=== PATIENT | female | born 1980 | race Caucasian/White ===

== ENCOUNTER 2018-10-17 17:28 | Emergency (ER) | payer SELFPAY ==
[2018-10-17 17:47] VITALS: BP 146/94
[2018-10-17] MEDS ORDERED: OXYCODONE-ACETAMINOPHEN 5-325 MG TABLET PO ONE (18:01)
[2018-10-17] MEDS ORDERED: ONDANSETRON 4 MG TAB.RAPDIS PO ONE (18:01)
--- NOTE | 2018-10-17 18:03 | ER Document Report ---
ED Medical Screen (RME) - General Chief Complaint: Fall Injury Stated Complaint: FALL/ANKLE,KNEE, ARM, LEG PAIN Time Seen by Provider: 10/17/18 17:56 Primary Care Provider: ANIKET SANCHEZ MD [Primary Care Provider] - Follow up as needed Mode of Arrival: Ambulatory Information source: Patient Notes: Patient presents emergency department with left ankle pain and abrasion to the left elbow left knee. She reports she fell going outside last night. She reports has been bleeding quite a bit. Last tetanus 2009. I have greeted and performed a rapid initial assessment of this patient. A comprehensive ED assessment and evaluation of the patient, analysis of test results and completion of the medical decision making process will be conducted by additional ED providers. TRAVEL OUTSIDE OF THE [place] IN LAST 30 DAYS: No - Related Data Allergies/Adverse Reactions: adhesive Allergy (Verified 10/17/18 17:34) latex Allergy (Verified 10/17/18 17:34) Past Medical History - Past Medical History Cardiac Medical History: Reports: Hx Hypertension Psychiatric Medical History: Reports: Hx Anxiety Past Surgical History: Reports: Hx Abdominal Surgery - Bowel obstruction after gastric bypass, Hx Gastric Bypass Surgery - Immunizations Hx Diphtheria, Pertussis, Tetanus Vaccination: Yes Physical Exam - Vital signs Vitals: Temp Pulse Resp BP Pulse Ox 97.7 F 120 H 18 146/94 H 96 10/17/18 17:43 10/17/18 17:43 10/17/18 17:43 10/17/18 17:43 10/17/18 17:43 Course - Vital Signs Vital signs: Temp Pulse Resp BP Pulse Ox 97.7 F 120 H 18 146/94 H 96 10/17/18 17:43 10/17/18 17:43 10/17/18 17:43 10/17/18 17:43 10/17/18 17:43 Doctor's Discharge - Discharge Referrals: ANIKET SANCHEZ MD [Primary Care Provider] - Follow up as needed
--- NOTE | 2018-10-17 18:24 | RADIOLOGY REPORT (SQ) ---
EXAM DESCRIPTION: ANKLE LEFT COMPLETE COMPLETED DATE/TIME: 10/17/2018 6:12 pm REASON FOR STUDY: ankle pain, fall COMPARISON: None. NUMBER OF VIEWS: Three views. TECHNIQUE: AP, lateral, and oblique radiographic images acquired of the left ankle. LIMITATIONS: None. FINDINGS: MINERALIZATION: Normal. BONES: No acute fracture or dislocation. No worrisome bone lesions. Calcaneal enthesopathy is prese nt. JOINTS: No effusions. SOFT TISSUES: No soft tissue swelling. No foreign body. OTHER: No other significant finding. IMPRESSION: NO RADIOGRAPHIC EVIDENCE OF ACUTE INJURY. TECHNICAL DOCUMENTATION: JOB ID: [id number] [employer]- All Rights Reserved Reading location - IP/workstation name: [email or web address]
[2018-10-17] MEDS ORDERED: KETOROLAC TROMETHAMINE 60 MG/2 ML SDV IM ONE (22:55)
[2018-10-17] MEDS ORDERED: DIPH/PERTUSS(ACELL)/TETANUS VAC/PF 0.5 ML SYR (>=10YO) IM ONE (22:55)
--- NOTE | 2018-10-17 22:58 | ER Document Report ---
ED General - General Chief Complaint: Fall Injury Stated Complaint: FALL/ANKLE,KNEE, ARM, LEG PAIN Time Seen by Provider: 10/17/18 17:56 Primary Care Provider: ANIKET SANCHEZ MD [Primary Care Provider] - Follow up as needed Mode of Arrival: Ambulatory Notes: Patient is a 38-year-old female without chronic medical problems who presents 24 hours after a fall. Patient states that she was attempting to move things around the house, tripped over a bed frame and landed on concrete. She states that she sustained abrasions over the left elbow and forearm, bilateral knees, and sustained a laceration over the left lateral malleolus. She did not hit her head or neck. She states she cleaned these areas at home and did not seek medical attention at that time. She states however today a laceration over the left lateral malleolus continued to bleed prompting her to come to the emergency department for further assessment. Last tetanus was approximately 8 years ago. She has not seen her primary care doctor regarding today's concerns. Pain to the affected areas as noted to be a mild, aching, throbbing pain. She has not trying to improve the pain. Touching the areas or moving worsens the pain. TRAVEL OUTSIDE OF THE [place] IN LAST 30 DAYS: No - Related Data Allergies/Adverse Reactions: adhesive Allergy (Verified 10/17/18 17:34) latex Allergy (Verified 10/17/18 17:34) Past Medical History - General Information source: Patient - Social History Smoking Status: Never Smoker Frequency of alcohol use: None Drug Abuse: None Lives with: Spouse/Significant other Family History: Arthritis, CAD, COPD, DM, Hyperlipidemia, Hypertension, Malignancy Patient has suicidal ideation: No Patient has homicidal ideation: No - Past Medical History Cardiac Medical History: Reports: Hx Hypertension Renal/ Medical History: Denies: Hx Peritoneal Dialysis Psychiatric Medical History: Reports: Hx Anxiety Past Surgical History: Reports: Hx Abdominal Surgery - Bowel obstruction after gastric bypass, Hx Gastric Bypass Surgery - Immunizations Hx Diphtheria, Pertussis, Tetanus Vaccination: Yes Review of Systems - Review of Systems Notes: Constitutional: Negative for fever. Eyes: Negative for visual changes. ENT: Negative for facial injury Cardiovascular: Negative for chest injury. Respiratory: Negative for shortness of breath. Gastrointestinal: Negative for abdominal injury. Genitourinary: Negative for genital injury Musculoskeletal: Positive for left ankle injury Skin: Positive for laceration/abrasions. Neurological: Negative for head injury. Physical Exam - Vital signs Vitals: Temp Pulse Resp BP Pulse Ox 97.7 F 120 H 18 146/94 H 96 10/17/18 17:43 10/17/18 17:43 10/17/18 17:43 10/17/18 17:43 10/17/18 17:43 Interpretation: Tachycardic Notes: PHYSICAL EXAMINATION: GENERAL: Well-appearing, no acute distress. HEAD: Atraumatic, normocephalic. EYES: Pupils equal round and reactive to light, extraocular movements intact, sclera anicteric, conjunctiva are normal. ENT: nares patent, no oral pharyngeal trauma. No hemotympanum, no Shah's sign, no raccoon eyes. NECK: No midline cervical spine tenderness. Patient able to move their head to 45 bilaterally without any discomfort. LUNGS: Breath sounds clear to auscultation bilaterally and equal. No wheezes rales or rhonchi. HEART: Regular rate and rhythm without murmurs. CHEST WALL: No ecchymosis over the chest wall. ABDOMEN: Soft, nontender, normoactive bowel sounds. No guarding, no rebound. No abdominal bruising EXTREMITIES: Normal range of motion, no pitting or edema. No long bone deformities. BACK: No midline spinal tenderness, step-offs, or deformities. NEUROLOGICAL: Face symmetric. Tongue protrudes midline. Extraocular motions intact. Pupils are 2 mm and equally reactive. Normal speech, normal gait. 5 out of 5 strength in both the distal and proximal upper and lower extremities bilaterally. Sensation is grossly intact throughout. Finger to nose testing normal. Pronator drift normal. PSYCH: Normal mood, normal affect. SKIN: Warm, Dry, normal turgor, areas of abrasions of the bilateral knees, left elbow, 2 cm laceration to the left lateral malleolus Course - Re-evaluation Re-evalutation: 10/17/18 22:56 Presentation of a well patient in no acute distress, vitals within normal limits after a mechanical fall last evening. No focal neurologic deficits on exam, no evidence of basilar skull fracture on exam without evidence of hemotympanum, raccoon eyes, or periauricular hematoma. No papilledema. Patient is not on anticoagulation. GCS is 15. No loss of consciousness. No episodes of vomiting. Patient is therefore negative via [place] head CT criteria and CT imaging will not be obtained at this time. Patient also evaluated by nexus criteria and found to be negative. Patient is also negative by [place] C-spine criteria. No clinical evidence to suggest increased risk of cervical spine fracture. No indication for further imaging of the cervical spine. Patient has no focal deformities or limited range of motion in any joint space to indicate need for extremity imaging. Chest and abdominal exam are benign without any focal tenderness, shortness of breath, or bruising over the chest or abdominal wall. Patient has no flank tenderness. Patient has multiple abrasions over the left elbow and dorsal forearm, and abrasion to the right great toe, abrasions over the bilateral knees, and a laceration over the left lateral malleolus. Laceration is greater than 24 hours in age, not safe to close primarily and will heal via secondary intention. Tetanus has been updated. At this time will discharge with return precautions and follow-up recommendations. Verbal discharge instructions given a the bedside and opportunity for questions given. Medication warnings reviewed. Patient is in agreement with this plan and has verbalized understanding of return precautions and the need for primary care follow-up in the next 24-72 hours. - Vital Signs Vital signs: Temp Pulse Resp BP Pulse Ox 97.7 F 120 H 18 146/94 H 96 10/17/18 17:43 10/17/18 17:43 10/17/18 17:43 10/17/18 17:43 10/17/18 17:43 - Diagnostic Test Radiology reviewed: Image reviewed, Reports reviewed Radiology results interpreted by me: 10/18/18 03:25 Left ankle x-ray: No acute fracture or dislocation Discharge - Discharge Clinical Impression: Multiple abrasions Fall Qualifiers: Encounter type: initial encounter Qualified Code(s): W19.XXXA - Unspecified fall, initial encounter Left ankle injury Qualifiers: Encounter type: initial encounter Qualified Code(s): S99.912A - Unspecified injury of left ankle, initial encounter Condition: Good Disposition: HOME, SELF-CARE Additional Instructions: You have been seen in the Emergency Department (ED) today following a fall. Your workup today did not reveal any injuries that require you to stay in the hospital. You can expect, though, to be stiff and sore for the next several days. You can take ibuprofen 600 mg every 6 hours as needed for pain. You can apply a hot pack or electric heating pad to the sore areas. You can also use topical "Aspercreme with lidocaine" to sore areas as needed. Keep the areas of skin injury clean and dry. Clean with soap and water twice daily. Apply topical bacitracin and keep covered. Please follow up with your primary care doctor as soon as possible regarding today's ED visit and your recent accident. Call your doctor or return to the ED if you develop a sudden or severe headache, confusion, slurred speech, facial droop, weakness or numbness in any arm or leg, extreme fatigue, vomiting more than two times, severe abdominal pain, or other symptoms that concern you. Referrals: ANIKET SANCHEZ MD [Primary Care Provider] - Follow up as needed
== END 2018-10-17 23:36 | disposition home or self-care (01) ==
LOC: ER 17:28
DX: S91.012A Laceration without foreign body, left ankle, initial encounter (principal); S99.912A Unspecified injury of left ankle, initial encounter; S50.312A Abrasion of left elbow, initial encounter; S50.812A Abrasion of left forearm, initial encounter; W18.09XA Striking against other object with subsequent fall, initial encounter; I10 Essential (primary) hypertension
CPT/HCPCS: 99283; 96372; 90471; 73610; 90715; J1885; S0119

== ENCOUNTER 2019-01-11 23:00 | Emergency (ER) | payer SELFPAY ==
--- NOTE | 2019-01-11 23:17 | ER Document Report ---
Addendum entered and electronically signed by KASHIF MURRAY MD 01/12/19 14:44: Discharge - Discharge Clinical Impression: Suicide attempt Overdose Qualifiers: Encounter type: initial encounter Injury intent: intentional self-harm Qualified Code(s): T50.902A - Poisoning by unspecified drugs, medicaments and biological substances, intentional self-harm, initial encounter Alcohol intoxication Qualifiers: Complication of substance-induced condition: uncomplicated Qualified Code(s): F10.920 - Alcohol use, unspecified with intoxication, uncomplicated Leukocytosis Qualifiers: Leukocytosis type: unspecified Qualified Code(s): D72.829 - Elevated white blood cell count, unspecified Condition: Stable Disposition: HOME, SELF-CARE Additional Instructions: You have been evaluated both medical and behavioral health teams and have been deemed appropriate for discharge. You are recommended to follow-up with your outpatient mental health provider that you have set up in [place], [place]. You are recommended to decrease your Remeron to 15 mg daily for 7 days then discontinue. You have been provided prescriptions for Zyprexa 5 mg twice daily and Prozac 20 mg daily; please take as directed. You are highly encouraged to follow through with trauma focused therapy such as cognitive behavioral therapy (CBT) to address how to interpret your environment, your triggers, and build positive coping skills. Please stop using any illegal substances and alcohol. If you are having difficulties with discontinuing alcohol, you have been provided detox resource information or you can return to the emergency department if you start having concerns for withdrawal symptoms. Your family member has agreed to be part of your plan of care (i.e. no access to medications and weapons and to follow through with mental health recommendations) and you both have identified friends as additional supports to continue assist in observation during this high stressful time. If it any time, you do not follow these recommendations your support network is recommended to contact the local supervising appraiser for possible IVC petition for concern that you are a danger to yourself. DEPRESSION: Your evaluation reveals that you have mental depression. While symptoms may be vague, they often include disturbance of sleep, fatigue, loss of appetite, and general loss of interest in life. While depression may be a side effect of drugs, or a reaction to a major change in your life, many cases have no known cause. If depression is acute, and related to a major loss in your life, you can expect it to clear completely with time. If you have been depressed a long time, are prone to repeated bouts of depression or low mood, or have been thinking of suicide, get help. Depression can be treated with anti-depressant medication and counselling. Long-term depression will often take a few weeks to clear, even with appropriate medication. Follow-up care is important. SUICIDAL IDEATION: Suicidal ideation is a common medical term for thoughts about suicide, which may be as detailed as a formulated plan, without the suicidal act itself. Although most people who undergo suicidal ideation do not commit suicide, some go on to make suicide attempts. The range of suicidal ideation varies greatly from fleeting to detailed planning, role playing, and unsuccessful attempts. While thoughts about suicide are common, most people do not carry out serious actions to commit suicide. Based upon your evaluation and discussion with you, we do not believe you are currently at risk to act upon your thoughts of suicide. You have agreed to return to the Emergency Department, at any time, if you feel inclined to act upon your suicidal thoughts. FOLLOW-UP CARE: If you have been referred to a physician for follow-up care, call the physicians office for an appointment as you were instructed or within the next two days. If you experience worsening or a significant change in your symptoms, notify the physician immediately or return to the Emergency Department at any time for re-evaluation. Prescriptions: Fluoxetine HCl [Prozac 20 mg Capsule] 20 mg PO DAILY #7 capsule Olanzapine [Zyprexa 5 mg Tablet] 5 mg PO BID #15 tablet Referrals: [facility] [Outside] - Follow up as needed ANIKET SANCHEZ MD [NO LOCAL MD] - Follow up as needed Addendum entered and electronically signed by JACKY ARREGUIN LCSWA 01/12/19 14:36: Discharge - Discharge Clinical Impression: Suicide attempt Overdose Qualifiers: Encounter type: initial encounter Injury intent: intentional self-harm Qualified Code(s): T50.902A - Poisoning by unspecified drugs, medicaments and biological substances, intentional self-harm, initial encounter Alcohol intoxication Qualifiers: Complication of substance-induced condition: uncomplicated Qualified Code(s): F10.920 - Alcohol use, unspecified with intoxication, uncomplicated Leukocytosis Qualifiers: Leukocytosis type: unspecified Qualified Code(s): D72.829 - Elevated white blood cell count, unspecified Condition: Stable Disposition: HOME, SELF-CARE Additional Instructions: You have been evaluated both medical and behavioral health teams and have been deemed appropriate for discharge. You are recommended to follow-up with your outpatient mental health provider that you have set up in [place], [place]. You are recommended to decrease your Remeron to 15 mg daily for 7 days then discontinue. You have been provided prescriptions for Zyprexa 5 mg twice daily and Prozac 20 mg daily; please take as directed. You are highly encouraged to follow through with trauma focused therapy such as cognitive behavioral therapy (CBT) to address how to interpret your environment, your triggers, and build positive coping skills. Please stop using any illegal substances and alcohol. If you are having difficulties with discontinuing alcohol, you have been provided detox resource information or you can return to the emergency department if you start having concerns for withdrawal symptoms. Your family member has agreed to be part of your plan of care (i.e. no access to medications and weapons and to follow through with mental health recommendations) and you both have identified friends as additional supports to continue assist in observation during this high stressful time. If it any time, you do not follow these recommendations your support network is recommended to contact the local supervising appraiser for possible IVC petition for concern that you are a danger to yourself. DEPRESSION: Your evaluation reveals that you have mental depression. While symptoms may be vague, they often include disturbance of sleep, fatigue, loss of appetite, a nd general loss of interest in life. While depression may be a side effect of drugs, or a reaction to a major change in your life, many cases have no known cause. If depression is acute, and related to a major loss in your life, you can expect it to clear completely with time. If you have been depressed a long time, are prone to repeated bouts of depression or low mood, or have been thinking of suicide, get help. Depression can be treated with anti-depressant medication and counselling. Long-term depression will often take a few weeks to clear, even with appropriate medication. Follow-up care is important. SUICIDAL IDEATION: Suicidal ideation is a common medical term for thoughts about suicide, which may be as detailed as a formulated plan, without the suicidal act itself. Although most people who undergo suicidal ideation do not commit suicide, some go on to make suicide attempts. The range of suicidal ideation varies greatly from fleeting to detailed planning, role playing, and unsuccessful attempts. While thoughts about suicide are common, most people do not carry out serious actions to commit suicide. Based upon your evaluation and discussion with you, we do not believe you are currently at risk to act upon your thoughts of suicide. You have agreed to return to the Emergency Department, at any time, if you feel inclined to act upon your suicidal thoughts. FOLLOW-UP CARE: If you have been referred to a physician for follow-up care, call the [facility] office for an appointment as you were instructed or within the next two days. If you experience worsening or a significant change in your symptoms, notify the physician immediately or return to the Emergency Department at any time for re-evaluation. Referrals: ANIKET SANCHEZ MD [NO LOCAL MD] - Follow up as needed [facility] [Outside] - Follow up as needed Original Note: ED General - General Stated Complaint: POSSIBLE OVERDOSE Time Seen by Provider: 01/11/19 23:15 Primary Care Provider: ANIKET SANCHEZ MD [NO LOCAL MD] - Follow up as needed Notes: Patient is a 38-year-old female that presents to the emergency department for chief complaint of intentional overdose. Patient apparently took a handful of hydrocodone/acetaminophen tablets or 5 mg / 325 mg, Klonopin, and about 1/5 of vodka. She was found by her boyfriend at around 10:50 PM this evening, and what was called, versus finding please officer administered a total of 8 mg of Narcan, she was unresponsive, and apneic upon his arrival. At this time the patient is awake and is tearful, when asked that she did this on purpose to kill herself, she nods her head yes. She does not explain why though, the patient is intoxicated, and rather emotional at this time, not able to provide any significant or detailed history. She denies having any pain at this time. She is complaining of nausea. After the patient is more clinically sober, I sat down and discussed with her further, she states that she is been having chronic low back pain, she states it has been ignored by her primary care, to the point where she got frustrated, and she has no insurance, that she decided to do something "stupid" today, at this time she realizes that what she did was a terrible idea, still tearful, but states that she is never done anything like this in the past, but she is gotten to the point of frustration. She states that she is embarrassed at this time as well. Past Medical History: Anxiety, depression Past Surgical History: No reported surgical history Social History: Admits to smoking cigarettes, alcohol use, denies illicit drug use Family History: Reviewed and noncontributory for presenting illness Allergies: Reviewed, see documented allergy list. REVIEW OF SYSTEMS: Other than noted above, the 12 point review of systems was reviewed with the patient and were negative, all pertinent findings are included in the HPI. PHYSICAL EXAMINATION: Vital signs reviewed, nursing noted reviewed. GENERAL: Patient is alert, tearful, somewhat disoriented HEAD: Atraumatic, normocephalic. EYES: Eyes appear normal, extraocular movements intact, sclera anicteric, conjunctiva are normal. ENT: nares patent, oropharynx clear without exudates. Moist mucous membranes. NECK: Normal range of motion, supple without lymphadenopathy LUNGS: Breath sounds clear to auscultation bilaterally and equal. No wheezes rales or rhonchi. HEART: Heart rate tachycardic, regular rhythm. No audible murmur ABDOMEN: Soft, obese, nontender, normoactive bowel sounds. No rebound, guarding, or rigidity. No masses appreciated. EXTREMITIES: Nontender, good range of motion, no pitting or edema. NEUROLOGICAL: No focal neurological deficits. Moves all extremities spontaneously Motor and sensory grossly intact on exam. PSYCH: Dysphoric mood, flat affect, poor judgment SKIN: Warm, Dry, normal turgor, no rashes or lesions noted on exposed skin TRAVEL OUTSIDE OF THE [place] IN LAST 30 DAYS: No - Related Data Allergies/Adverse Reactions: adhesive Allergy (Verified 10/17/18 17:34) latex Allergy (Verified 10/17/18 17:34) Past Medical History - Social History Smoking Status: Current Every Day Smoker Family History: Arthritis, CAD, COPD, DM, Hyperlipidemia, Hypertension, Malignancy - Past Medical History Cardiac Medical History: Reports: Hx Hypertension Renal/ Medical History: Denies: Hx Peritoneal Dialysis Psychiatric Medical History: Reports: Hx Anxiety Past Surgical History: Reports: Hx Abdominal Surgery - Bowel obstruction after gastric bypass, Hx Gastric Bypass Surgery - Immunizations Hx Diphtheria, Pertussis, Tetanus Vaccination: Yes Physical Exam - Vital signs Vitals: Resp Pulse Ox 25 H 93 01/11/19 23:03 01/11/19 23:03 Course - Re-evaluation Re-evalutation: Patient seen and examined, vital signs reviewed. Patient initially was rather tearful, at times she became somnolent but was arousable, but did need to be monitored frequently, and woken up frequently, because she would go hypoxic, and therefore supplemental oxygen was placed. Over time the patient became more alert, and more appropriate. Medical screening testing was ordered including bloodwork, EKG, and toxicology. Results of testing were reviewed. Testing demonstrated elevated alcohol level, greater than 200, her tox screen was positive for marijuana, cocaine, and opi ates. Patient has been stable from a hemodynamic standpoint. She does have a leukocytosis as well, likely you have a stress reaction, due to the patient being apneic, and overdosed, no evidence or suspicion of infection. Her Tylenol level was elevated at 84, will repeat 3 hours from the initial, unknown time of the patient's actual ingestion. Repeat Tylenol has come down, the 27, indicating that the patient was nontoxic from Tylenol ingestion. I did talk with the patient further, as noted in the HPI, I do feel that she needs further evaluation from a psychiatric standpoint before being able to be discharged home. At this point I feel that the patient is medically cleared and can be further evaluated from a psychiatric standpoint for final disposition from the emergency department. I do feel that the patient was attempting suicide, IVC paperwork was filled out, patient seems to be regretful of her actions this evening, but still does need to be evaluated from a psychiatric standpoint, and likely needs case management to evaluate her as well, as it seems like financial issues have limited her to obtain proper health care. Patient updated on plan of care. Laboratory 01/11/19 01/11/19 01/11/19 23:12 23:12 23:12 WBC 18.9 H RBC 4.54 Hgb 14.1 Hct 41.9 MCV 92 MCH 31.1 MCHC 33.7 RDW 14.8 H Plt Count 281 Seg Neutrophils % 76.0 Lymphocytes % 16.0 Monocytes % 7.1 Eosinophils % 0.5 Basophils % 0.4 Absolute Neutrophils 14.4 H Absolute Lymphocytes 3.0 Absolute Monocytes 1.3 Absolute Eosinophils 0.1 Absolute Basophils 0.1 Sodium 144.6 Potassium 3.5 L Chloride 107 Carbon Dioxide 19 L Anion Gap 19 BUN 11 Creatinine 0.74 Est GFR ( Amer) > 60 Est GFR (Non-Af Amer) > 60 Glucose 119 H Calcium 9.3 Total Bilirubin 0.3 Direct Bilirubin 0.3 Neonat Total Bilirubin Not Reportable Neonat Direct Bilirubin Not Reportable Neonat Indirect Bili Not Reportable AST 46 H ALT 41 Alkaline Phosphatase 57 Total Protein 7.2 Albumin 4.4 Serum HCG, Qual NEGATIVE Urine Color Urine Appearance Urine pH Ur Specific [place] Urine Protein Urine Glucose (UA) Urine Ketones Urine Blood Urine Nitrite Urine Bilirubin Urine Urobilinogen Ur Leukocyte Esterase Urine WBC (Auto) Urine RBC (Auto) U Hyaline Cast (Auto) Squamous Epi Cells Auto Urine Mucus (Auto) Urine Ascorbic Acid Salicylates 1.0 L Urine Opiates Screen Urine Methadone Screen Acetaminophen 81 H Ur Barbiturates Screen Ur Phencyclidine Scrn Ur Amphetamines Screen U Benzodiazepines Scrn Urine Cocaine Screen U Marijuana (THC) Screen Serum Alcohol 261 01/12/19 01/12/19 00:43 00:43 WBC RBC Hgb Hct MCV MCH MCHC RDW Plt Count Seg Neutrophils % Lymphocytes % Monocytes % Eosinophils % Basophils % Absolute Neutrophils Absolute Lymphocytes Absolute Monocytes Absolute Eosinophils Absolute Basophils Sodium Potassium Chloride Carbon Dioxide Anion Gap BUN Creatinine Est GFR ( Amer) Est GFR (Non-Af Amer) Glucose Calcium Total Bilirubin Direct Bilirubin Neonat Total Bilirubin Neonat Direct Bilirubin Neonat Indirect Bili AST ALT Alkaline Phosphatase Total Protein Albumin Serum HCG, Qual Urine Color YELLOW Urine Appearance SLIGHTLY-CLOUDY Urine pH 5.0 Ur Specific [place] 1.010 Urine Protein NEGATIVE Urine Glucose (UA) NEGATIVE Urine Ketones NEGATIVE Urine Blood LARGE H Urine Nitrite NEGATIVE Urine Bilirubin NEGATIVE Urine Urobilinogen NEGATIVE Ur Leukocyte Esterase NEGATIVE Urine WBC (Auto) 3 Urine RBC (Auto) 1 U Hyaline Cast (Auto) 4 Squamous Epi Cells Auto 2 Urine Mucus (Auto) RARE Urine Ascorbic Acid NEGATIVE Salicylates Urine Opiates Screen UNCONFIRMED POSITIVE Urine Methadone Screen NEGATIVE Acetaminophen Ur Barbiturates Screen NEGATIVE Ur Phencyclidine Scrn NEGATIVE Ur Amphetamines Screen NEGATIVE U Benzodiazepines Scrn NEGATIVE Urine Cocaine Screen UNCONFIRMED POSITIVE U Marijuana (THC) Screen UNCONFIRMED POSITIVE Serum Alcohol - Vital Signs Vital signs: Temp Pulse Resp BP Pulse Ox 98.1 F 120 H 16 106/57 L 96 01/12/19 03:33 06/13/19 03:33 01/12/19 03:33 01/12/19 03:33 01/12/19 03:33 - Laboratory Result Diagrams: 01/11/19 23:12 01/11/19 23:12 Laboratory results interpreted by me: 01/11/19 01/11/19 01/12/19 23:12 23:12 00:43 WBC 18.9 H RDW 14.8 H Absolute Neutrophils 14.4 H Potassium 3.5 L Carbon Dioxide 19 L Glucose 119 H AST 46 H Urine Blood LARGE H Salicylates 1.0 L Acetaminophen 81 H - EKG Interpretation by Me Additional EKG results interpreted by me: EKG demonstrates sinus tachycardia with a ventricular rate of 119 bpm, normal axis, QTC 479 ms, no evidence of acute ischemia in this EKG. Critical Care Note - Critical Care Note Total time excluding time spent on procedures (mins): 35 Comments: Critical care time 35 minutes exclusive from separate billable procedures for a patient requiring complex medical decision making, and high potential for clinical deterioration. An acute toxic overdose patient requiring close monitoring, frequent re-evaluations, and assessments.. Time spent obtaining history from patient or surrogate, discussions with consultants, development of treatment plan with patient or surrogate, evaluation of patient's response to treatment, examination of patient, ordering and performing treatments and interventions, ordering and review of laboratory studies, re-evaluation of patient's condition, ordering and review of radiographic studies and review of old charts Discharge - Discharge Clinical Impression: Suicide attempt Overdose Qualifiers: Encounter type: initial encounter Injury intent: intentional self-harm Qualified Code(s): T50.902A - Poisoning by unspecified drugs, medicaments and biological substances, intentional self-harm, initial encounter Alcohol intoxication Qualifiers: Complication of substance-induced condition: uncomplicated Qualified Code(s): F10.920 - Alcohol use, unspecified with intoxication, uncomplicated Leukocytosis Qualifiers: Leukocytosis type: unspecified Qualified Code(s): D72.829 - Elevated white blood cell count, unspecified Condition: Stable Disposition: PSYCH HOSP/UNIT Referrals: ANIKET SANCHEZ MD [NO LOCAL MD] - Follow up as needed
[2019-01-11 23:26] LABS: ABSOLUTE BASOPHILS # (AUTO) 0.1 10^3/uL (0.0-0.2); ABSOLUTE EOSINOPHILS # (AUTO) 0.1 10^3/uL (0.0-0.6); ABSOLUTE MONOCYTES (AUTO) 1.3 10^3/uL (0.1-1.4); ABSOLUTE NEUT (AUTO) 14.4 10^3/uL (1.7-8.2); BASOPHILS % (AUTO) 0.4 % (0-2); EOSINOPHILS % (AUTO) 0.5 % (0-6); HEMATOCRIT 41.9 % (36.0-47.0); HEMOGLOBIN 14.1 g/dL (12.0-15.5); MEAN CORPUSCULAR HEMOGLOBIN 31.1 pg (27.0-33.4); MEAN CORPUSCULAR HGB CONC 33.7 g/dL (32.0-36.0); MEAN CORPUSCULAR VOLUME 92 fl (80-97); MONOCYTES % (AUTO) 7.1 % (3-13); PLATELET COUNT 281 10^3/uL (150-450); RED BLOOD COUNT 4.54 10^6/uL (3.72-5.28); RED CELL DISTRIBUTION WIDTH 14.8 % (11.5-14.0); TOTAL CELLS COUNTED % (AUTO) 100 %; WHITE BLOOD COUNT 18.9 10^3/uL (4.0-10.5)
[2019-01-11] MEDS ORDERED: NORMAL SALINE 1000 ML 1,000 ML IV ONE (23:38)
[2019-01-11] MEDS ORDERED: ONDANSETRON HCL INJ/PF 4 MG/2 ML SDV IV ONE (23:38)
[2019-01-11 23:40] LABS: ACETAMINOPHEN 81 ug/mL (10-30); ALANINE AMINOTRANSFERASE 41 U/L (9-52); ALBUMIN 4.4 g/dL (3.5-5.0); ALCOHOL 261 mg/dL (NONE DETECTED); ALKALINE PHOSPHATASE 57 U/L (38-126); ANION GAP 19 (5-19); ASPARTATE AMINO TRANSFERASE 46 U/L (14-36); BILIRUBIN,DIRECT 0.3 mg/dL (0.0-0.4); BILIRUBIN,TOTAL 0.3 mg/dL (0.2-1.3); BLOOD UREA NITROGEN 11 mg/dL (7-20); CALCIUM 9.3 mg/dL (8.4-10.2); CARBON DIOXIDE 19 mmol/L (22-30); CHLORIDE 107 mmol/L (98-107); GLUCOSE 119 mg/dL (75-110); POTASSIUM 3.5 mmol/L (3.6-5.0); SODIUM 144.6 mmol/L (137-145); TOTAL PROTEIN 7.2 g/dL (6.3-8.2)
[2019-01-12 01:05] LABS: APPEARANCE,URINE SLIGHTLY-CLOUDY; BILIRUBIN,URINE NEGATIVE (NEGATIVE); COLOR,URINE YELLOW; GLUCOSE, URINE NEGATIVE (NEGATIVE); KETONES,URINE NEGATIVE (NEGATIVE); LEUKOCYTE ESTERASE,URINE NEGATIVE (NEGATIVE); NITRITE,URINE NEGATIVE (NEGATIVE); PROTEIN,URINE NEGATIVE (NEGATIVE); UROBILINOGEN,URINE NEGATIVE mg/dL (<2.0)
[2019-01-12 01:48] LABS: URINE AMPHETAMINES SCREEN NEGATIVE; URINE BARBITURATES SCREEN NEGATIVE; URINE BENZODIAZEPINES SCREEN NEGATIVE; URINE COCAINE SCREEN UNCONFIRMED POSITIVE; URINE MARIJUANA (THC) SCREEN UNCONFIRMED POSITIVE; URINE METHADONE SCREEN NEGATIVE; URINE PHENCYCLIDINE SCREEN NEGATIVE
[2019-01-12] MEDS ORDERED: RINGERS SOLUTION,LACTATED 1,000 ML IV ONE (02:22)
--- NOTE | 2019-01-12 08:15 | EKG REPORT ---
SEVERITY:- OTHERWISE NORMAL ECG - SINUS TACHYCARDIA : Confirmed by: Jimbo More MD 12-Jan-2019 08:14:30
--- NOTE | 2019-01-12 10:14 | ER Document Report ---
Doctor's Note Notes: 01/12/19 10:12 Rounds: Patient evaluated and chart reviewed. Patient is awake and up walking around. Says she does not feel suicidal today. Says she was celebrating graduation of her daughter from high school and got carried away. Feels regretful. Lab review showed an alcohol level of 261. White count of 18,900, but no evidence of infection on examination of the patient. Her Tylenol level went up but the most recent one was in the 20s and declining. Drug screen was positive for marijuana, opiates, cocaine. Vital signs are all normal. Patient appears to be medically stable for transfer or discharge. Mayra Self MD
[2019-01-12] MEDS ORDERED: ONDANSETRON 4 MG TAB.RAPDIS PO ONE (13:04)
[2019-01-12] MEDS ORDERED: FLUOXETINE HCL 20 MG CAPSULE PO ONE (14:07)
[2019-01-12] MEDS ORDERED: OLANZAPINE 5 MG TAB.RAPDIS PO ONE (14:07)
[2019-01-12 14:35] VITALS: BP 119/101
== END 2019-01-12 14:35 | disposition home or self-care (01) ==
LOC: ER 23:00
DX: T40.2X2A Poisoning by other opioids, intentional self-harm, initial encounter (principal); T39.1X2A Poisoning by 4-Aminophenol derivatives, intentional self-harm, initial encounter; T42.4X2A Poisoning by benzodiazepines, intentional self-harm, initial encounter; T51.0X2A Toxic effect of ethanol, intentional self-harm, initial encounter; Y92.009 Unspecified place in unspecified non-institutional (private) residence as the place of occurrence of the external cause; R09.02 Hypoxemia; D72.829 Elevated white blood cell count, unspecified; R11.0 Nausea; R40.0 Somnolence; M54.5 Low back pain; G89.29 Other chronic pain; I10 Essential (primary) hypertension; F17.210 Nicotine dependence, cigarettes, uncomplicated; R00.0 Tachycardia, unspecified; Z91.040 Latex allergy status; Z91.048 Other nonmedicinal substance allergy status; Z98.84 Bariatric surgery status
CPT/HCPCS: 93005; 99285; 96361; 96374; 36415; 80307 ×4; 84703; 85025; 80053; 81001; 93010; J3490; S0119; J2405; J7030; J7120